=== PATIENT | male | born 1955 | race Caucasian/White ===

== ENCOUNTER 2017-07-09 06:59 | Emergency (ER) | payer MEDICARE, BC ==
[~2017-07-09] VITALS: Ht 175.3 cm; Wt 94.5 kg
[~2017-07-09 06:59] MED LIST: ACCOLATE 220 MG/1 TA PO; ASPIR-LOW81 MG PO; ASPIRIN E.C. 8181 MG PO; ATROVENT0.018 MG/A IH; BACTRIM DS 8001 TAB PO; BROVANA15 MCG/2 M IH; CETIRIZINE; DUONEB 3 MG/3 ML3 ML IH; FERROUS SU325 MG/TAB PO; FOLIC ACID; LIPITOR 10MG10 MG PO; NO HOME MEDICATIONS; PLAVIX 75MG TAB75 MG PO; PULMICORT0.5 MG/21 IH; PULMICORT180 MCG/A1 IH; RT ALBUTER2.5 MG/0.5 IH; SPIRIVA INH IH; VENTOLIN0.09 MG IH; VITAMIN C250250 MG PO; ZOLOFT50 MG PO
[2017-07-09] MEDS ORDERED: ZOCOR 20MG20 MG PO (07:31)
[2017-07-09] MEDS ORDERED: DALIRESP500 MCG PO (07:32)
[2017-07-09] MEDS ORDERED: 00186-0370-20 IH (07:33)
[2017-07-09 07:34] LABS: BASO # 0.1 (0.0-0.2); BASO % 0.6 % (0.0-2.0); EOS # 0.1 (0.0-0.7); EOS % 0.7 % (0-4.0); GRAN # 6.1 (1.4-6.5); HEMATOCRIT 46.2 % (42.0-52.0); HEMOGLOBIN 16.2 g/dl (13.5-18.0); LYMPH # 2.9 (1.2-3.4); LYMPH % 28.6 % (20.0-51.0); MEAN CELL VOLUME 93 fl (80.0-100.0); MEAN CORPUSCULAR HEMOGLOBIN 33 pg (27.0-31.0); MEAN CORPUSCULAR HGB CONC 35 g/dl (33.0-37.0); MEAN PLATELET VOLUME 10.4 fl (7.4-10.4); MONO # 0.9 (0.1-0.6); MONO % 8.9 % (1.7-9.3); PLATELET COUNT 343 K/mm3 (130-400); RED BLOOD COUNT 4.95 M/mm3 (4.20-5.60); REDCELL DISTRIBUTION WIDTH-CV 14.3 % (11.5-14.5)
[2017-07-09] MEDS ORDERED: BYSTOLIC5 MG (07:35)
[2017-07-09 07:38] LABS: INR 0.9 (0.8-3.0); PROTHROMBIN TIME 10.1 SECONDS (9.7-12.8)
[2017-07-09 07:41] LABS: PARTIAL THROMBOPLASTIN TIME 34.5 SECONDS (26.0-37.0)
[2017-07-09 07:53] LABS: ALANINE AMINOTRANSFERASE 29 U/L (21-72); ALBUMIN 4.3 gm/dL (3.5-5.0); ALKALINE PHOSPHATASE 88 U/L (50-136); ANION GAP 14 mmol/L (7-16); AST,SGOT 24 U/L (15-37); BILIRUBIN,TOTAL 0.7 mg/dL (0.0-1.0); BLOOD UREA NITROGEN 13 mg/dL (9-20); CALCIUM 9.8 mg/dL (8.4-10.2); CARBON DIOXIDE 20 mmol/L (22-30); CHLORIDE 106 mmol/L (98-107); CREATININE, serum 0.89 mg/dL (0.66-1.25); GLUCOSE 112 mg/dL (74-106); LIPASE 52 U/L (23-300); PHOSPHOROUS 2.8 mg/dL (2.5-4.5); POTASSIUM 4.3 mmol/L (3.4-5.0); SODIUM 140 mmol/L (137-145); TOTAL PROTEIN 8.3 gm/dL (6.4-8.2)
[2017-07-09 08:05] LABS: TROPONIN-I < 0.012 ng/mL (0.000-0.034)
[2017-07-09] MEDS ORDERED: FLEXERIL 1010 MG/TAB PO (11:11)
[2017-07-09 12:33] VITALS: BP 154/72; PULSE 71
== END 2017-07-09 12:33 | disposition home or self-care (01) ==
LOC: COL.ER 06:59
PROVIDERS: Emergency Medicine
DX: R07.89 Other chest pain (principal); M54.2 Cervicalgia; I10 Essential (primary) hypertension; I73.9 Peripheral vascular disease, unspecified; E78.5 Hyperlipidemia, unspecified; J44.9 Chronic obstructive pulmonary disease, unspecified; F17.210 Nicotine dependence, cigarettes, uncomplicated; Z82.49 Family history of ischemic heart disease and other diseases of the circulatory system; Z95.820 Peripheral vascular angioplasty status with implants and grafts; Z90.89 Acquired absence of other organs; Z98.2 Presence of cerebrospinal fluid drainage device; Z90.81 Acquired absence of spleen; Z79.02 Long term (current) use of antithrombotics/antiplatelets; Z79.82 Long term (current) use of aspirin; Z79.51 Long term (current) use of inhaled steroids

== ENCOUNTER 2017-10-21 07:25 | Outpatient (RCR) | payer MEDICARE, BC ==
[~2017-10-21] VITALS: Ht 175.3 cm; Wt 95.4 kg
[~2017-10-21 07:25] MED LIST changes: +00186-0370-20 IH; +BYSTOLIC5 MG; +DALIRESP500 MCG PO; +FLEXERIL 1010 MG/TAB PO; +ZOCOR 20MG20 MG PO
[2017-10-21 08:24] VITALS: BP 127/70; PULSE 69; TEMP 97.6
[2017-10-21] MEDS ORDERED: STIOLTO RESPIMAT4 GM IH (09:16)
[2017-10-21] MEDS ORDERED: CRESTOR5 MG PO (09:17)
[2017-10-23 14:36] LABS: ADRENOCORTICOTROPIC HORMONE 7.2 pg/mL (())
== END 2017-10-21 11:00 | disposition home or self-care (01) ==
LOC: EUO 07:25
PROVIDERS: Internal Medicine Interventional Cardiology
DX: R42 Dizziness and giddiness (principal)
CPT/HCPCS: J0834

== ENCOUNTER → 2018-04-30 | Outpatient (CLI) | payer MEDICARE, BC ==
[~2018-04-30] MED LIST changes: +CRESTOR5 MG PO; +STIOLTO RESPIMAT4 GM IH
== END ==
LOC: COL.RAD 14:41
DX: R10.31 Right lower quadrant pain (principal); Z90.81 Acquired absence of spleen; Z96.643 Presence of artificial hip joint, bilateral; Z95.820 Peripheral vascular angioplasty status with implants and grafts
CPT/HCPCS: Q9967

== ENCOUNTER → 2022-05-02 | Outpatient (CLI) | payer MEDICARE, BC ==
[~2022-05-02] MED LIST changes: +ATIVAN 0.50.5 MG/TAB PO; +CATAPRES 0.1MG0.1 MG PO; +DULCOLAX STOOL100 MG PO; +ELIQUIS 5MG PO; +FENTANYL 12MCG TD; +FOLIC ACID 11 MG/TA1 PO; +NORCO 325 MG-51 TAB PO; +PACERONE200 MG PO; +TYLENOL 500MG500 MG PO
== END ==
LOC: COL.RAD 14:05
DX: Z12.2 Encounter for screening for malignant neoplasm of respiratory organs (principal); Z87.891 Personal history of nicotine dependence; Z72.0 Tobacco use